=== PATIENT | female | born 1975 | race Caucasian/White ===

== ENCOUNTER → 2021-10-09 | Outpatient (CLI) | payer BC ==
--- NOTE | 2021-10-09 10:51 | MM ---
Reason for exam: clinical finding. Last mammogram was performed 12 years and 1 month ago. History: Family history of breast cancer in sister at age 37 and breast cancer in aunt at age 40. Took hormonal contraceptives for 10 years. Indicated problem(s): lump or thickening in the right breast. Physical Findings: Nurse Summary: lesion in the right breast at 9-10 o'clock axillary tail (nurse db). MG 3D Diag Mammo W/Cad ROHINI Bilateral CC and MLO view(s) were taken. LM view(s) were taken of the right breast. Prior study comparison: September 02, 2009, left breast mammogram dig work up. August 27, 2009, bilateral digital screening mammogram. The breast tissue is extremely dense which could obscure a lesion on mammography. There are benign appearing diffuse, round calcifications bilaterally, greater in the left breast. These results were verbally communicated with the patient and result sheet given to the patient on 10/09/21. ASSESSMENT: Probably benign, BI-RAD 3 RECOMMENDATION: Follow-up diagnostic mammogram of the left breast in 6 months. (+ magnification views)
== END | disposition home or self-care (01) ==
LOC: RADMAMWWP 09:05
PROVIDERS: ATTEND Family Medicine
DX: N63.0 Unspecified lump in unspecified breast (principal)
CPT/HCPCS: 77062; 77066

== ENCOUNTER → 2022-12-08 | Outpatient (CLI) | payer OTHER ==
--- NOTE | 2022-12-08 08:17 | MM ---
Reason for Exam: Follow-up at short interval from prior study. Last mammogram was performed 1 year(s) and 2 month(s) ago. Patient History: Menarche at age 12. First Full-Term at age 21. Perimenopausal. Patient used Hormonal Contraceptives for 10 years. Maternal aunt had breast cancer, age 40. Sister had breast cancer, age 37. Last menstrual period: 09/05/2022 Risk Values: Dot 5 year model risk: 1.7%. NCI Lifetime model risk: 16.9%. Tissue Density: The breast tissue is extremely dense which could obscure a lesion on mammography. Findings: Analyzed By CAD. There is a group of punctate calcifications upper outer aspect right breast measuring up to approximately 1.0 cm in size. These appear to be increased and grouped from comparison study. Stereotactic core biopsy is recommended. There are some calcifications in the lower inner aspect right breast. These are more segmental in distribution. These are better visualized on standard views may be increased from comparison. If right upper outer quadrant breast calcifications are positive for malignancy, consider MRI of the breasts or telesales representative biopsy of these calcifications. Scattered multiple calcifications are present through the left breast which appears stable from comparison. Overall Assessment: Suspicious, BI-RAD 4 Management: Stereotactic Core Biopsy of the right breast. A negative mammogram report should not preclude additional follow up of suspicious palpable abnormalities. Patient should continue monthly self breast exam. A clinical breast exam by your physician is recommended on an annual basis and results should be correlated with mammographic findings. Electronically signed and approved by: Gera Maurice D.O. Radiologis
== END | disposition home or self-care (01) ==
LOC: RADMAMWWP 07:10
PROVIDERS: ATTEND Family Medicine
DX: R92.8 Other abnormal and inconclusive findings on diagnostic imaging of breast (principal); Z80.3 Family history of malignant neoplasm of breast
CPT/HCPCS: 77062; 77066

== ENCOUNTER → 2022-12-20 | Day surgery (SDC) | payer OTHER ==
[2022-12-20 10:07] VITALS: RESP 16
[2022-12-20 11:13] VITALS: BP 119/79; PULSE 61; TEMP 98.1
--- NOTE | 2022-12-24 09:58 | MM ---
Risk Values: Dot 5 year model risk: 1.7%. NCI Lifetime model risk: 16.9%. Prior Study Comparison: 09/02/2009 Left Diagnostic Mammogram, [facility]. 10/09/2021 Bilateral Diagnostic Mammogram, [facility]. 12/08/2022 Bilateral MG 3D diag mammo w/cad ROHINI, [facility]. Pathology Description: Location: upper outer quadrant. Approach: CC FA Needle Type: Eviva Cores: 7 Skin Nicks: 1 Gauge: 9 The calcification in question within the right breast were targeted by the undersigned. Procedure was performed by the undersigned. Informed consent was obtained and all of the patients questions were answered. The standard sterile technique was utilized and appropriate local anesthesia was obtained with 1% lidocaine. Mammotome probe was advanced and multiple core samples were obtained and sent to pathology for interpretation. Microclip marker was deployed at the site of biopsy which appear to be deployed however on post images the clip could not be visualized. The patient tolerated the procedure well and left the department in stable condition. Pathology results are pending. Impression: Successful stereotactic core biopsy right breast. Clip was not deployed appropriately and was not visualized on the post procedural mammogram. Pathology Results: Result: Benign, Fibrocystic change. RIGHT BREAST, STEREOTACTIC NEEDLE CORE BIOPSY: Fibrocystic change. Overall Assessment: Benign Management: Diagnostic Mammogram of the right breast in 6 months. Electronically signed and approved by: Estiven Hernandez M.D. Radiologis
== END ==
LOC: RADMAMWWP 09:52
PROVIDERS: ATTEND Surgery
DX: N60.11 Diffuse cystic mastopathy of right breast (principal); R92.8 Other abnormal and inconclusive findings on diagnostic imaging of breast
CPT/HCPCS: 88305; 19081; A4648; J2001

== ENCOUNTER → 2023-06-22 | Outpatient (CLI) | payer OTHER ==
--- NOTE | 2023-06-22 09:05 | MM ---
Reason for Exam: Follow-up at short interval from prior study. Last screening mammogram was performed 7 month(s) ago. Patient History: Menarche at age 12. First Full-Term at age 21. Perimenopausal. Patient used Hormonal Contraceptives for 10 years. 12/20/2022, Benign MG stereo VAD BX RT on the right side. Maternal aunt had breast cancer, age 40. Sister had breast cancer, age 37. Risk Values: Dot 5 year model risk: 2.3%. NCI Lifetime model risk: 19.8%. Prior Study Comparison: 09/02/2009 Left Diagnostic Mammogram, [facility]. 10/09/2021 Bilateral Diagnostic Mammogram, [facility]. 12/08/2022 Bilateral MG 3D diag mammo w/cad ROHINI, [facility]. Tissue Density: Right: The breast tissue is heterogeneously dense. This may lower the sensitivity of mammography. Findings: Analyzed By CAD. No suspicious calcifications present. No evidence for mass or distortion. Overall Assessment: Benign, BI-RAD 2 Management: Screening Mammogram of both breasts in 6 months. . Results were given to the patient verbally at the time of exam. Patient should continue monthly self-breast exams. A clinical breast exam by your physician is recommended on an annual basis. This exam should not preclude additional follow-up of suspicious palpable abnormalities. Note on Dot scores and lifetime risk: 1. A Dot score greater than 3% is considered moderate risk. If this is the case, consider specialist referral to assess eligibility for a risk reducing agent. 2. If overall lifetime risk for the development of breast cancer is 20% or higher, the patient may qualify for future screening with alternating mammogram and breast MRI. Electronically signed and approved by: Estiven Hernandez M.D. Radiologis
== END | disposition home or self-care (01) ==
LOC: RADMAMWWP 08:40
PROVIDERS: ATTEND Surgery
DX: R92.331 Mammographic heterogeneous density, right breast (principal); Z80.3 Family history of malignant neoplasm of breast
CPT/HCPCS: 77061; 77065